=== PATIENT | female | born 1995 | race Caucasian/White ===

== ENCOUNTER 2018-05-16 15:55 | Emergency (ER) | payer OTHER ==
[2018-05-16] MEDS ORDERED: Ondansetron 4 MG/2 ML SDV IVPUSH ONE (17:37)
[2018-05-16] MEDS ORDERED: Lactated Ringers 1,000 ML IV ONE (17:37)
[2018-05-16] MEDS ORDERED: Sodium Chloride 0.9% 10 ML Syringe FLUSH PRN (17:37)
[2018-05-16] MEDS ORDERED: Ketorolac 15 MG/ML SDV IVPUSH ONE (17:38)
--- NOTE | 2018-05-16 20:02 | EDM.PDOC ---
ED HPI GENERAL MEDICAL PROBLEM - General Chief Complaint: Gastrointestinal Problem Stated Complaint: VOMITING Time Seen by Provider: 05/16/18 17:25 Source of Information: Reports: Patient History Limitations: Reports: No Limitations - History of Present Illness INITIAL COMMENTS - FREE TEXT/NARRATIVE: 23-year-old female presents for evaluation and treatment of nausea and vomiting. Patient reports that she started vomiting since around 10 AM. She states that anything she eats or drinks for cause her to have emesis. She has had at least 7 episodes of vomiting today. She denies any fevers, chills, shortness of breath, chest pain, abdominal pain or diarrhea. She does feel slightly lightheaded when she is up and walking around. She became concerned today when she went to work and was vomiting. She reports tetany to her hands that lasted a few minutes and resolves on its own. Patient denies any chance of . Patient reports that she was drink alcohol last night. She states that she had at least 8 drinks over the course tonight. She reports that she does not normally drink heavily, if anything she may have a beer or glass of wine once in a great while with food. - Related Data Allergies Allergy/AdvReac Type Severity Reaction Status Date / Time No Known Allergies Allergy Verified 05/16/18 16:30 Home Meds: Home Meds . [No Known Home Meds] 05/16/18 [History] Past Medical History - Past Health History Medical/Surgical History: Denies Medical/Surgical History Social & Family History - Tobacco Use Smoking Status *Q: Never Smoker - Caffeine Use Caffeine Use: Reports: Coffee - Recreational Drug Use Recreational Drug Type: Reports: Marijuana/Hashish ED ROS GENERAL - Review of Systems Review Of Systems: See Below Constitutional: Denies: Fever, Chills Respiratory: Denies: Shortness of Breath Cardiovascular: Denies: Chest Pain GI/Abdominal: Reports: Nausea, Vomiting. Denies: Abdominal Pain, Diarrhea Neurological: Reports: Other (Reports tetani to the hands earlier, resolved upon arrival.) ED EXAM, GI/ABD - Physical Exam Exam: See Below Exam Limited By: No Limitations General Appearance: Alert, WD/WN, No Apparent Distress Throat/Mouth: Normal Inspection, Normal Voice, No Airway Compromise Respiratory/Chest: No Respiratory Distress, Lungs Clear, Normal Breath Sounds Cardiovascular: Normal Peripheral Pulses, Regular Rate, Rhythm, No Murmur GI/Abdominal Exam: Normal Bowel Sounds, Soft, Non-Tender Extremities: Normal Inspection Neurological: Alert, Oriented, Normal Cognition Psychiatric: Normal Affect, Normal Mood Skin Exam: Warm, Dry, Normal Color Course - Vital Signs Last Recorded V/S: Last Vital Signs Temp 99.1 F 05/16/18 16:28 Pulse 85 05/16/18 16:28 Resp 20 05/16/18 16:28 BP 143/80 H 05/16/18 16:28 Pulse Ox 100 05/16/18 16:28 - Orders/Labs/Meds Labs: Laboratory Tests 05/16/18 05/16/18 05/16/18 Range/Units 18:15 18:15 19:41 WBC 11.41 H (3.98-10.04) K/mm3 RBC 4.36 (3.98-5.22) M/mm3 Hgb 12.9 (11.2-15.7) gm/L Hct 38.9 (34.1-44.9) % MCV 89.2 (79.4-94.8) fl MCH 29.6 (25.6-32.2) pg MCHC 33.2 (32.2-35.5) g/dl RDW Std Deviation 39.8 (36.4-46.3) fL Plt Count 337 (182-369) K/mm3 MPV 9.1 L (9.4-12.3) fl Neut % (Auto) 77.7 H (34.0-71.1) % Lymph % (Auto) 14.2 L (19.3-51.7) % [place] % (Auto) 7.4 (4.7-12.5) % Eos % (Auto) 0 L (0.7-5.8) Baso % (Auto) 0.4 (0.1-1.2) % Neut # (Auto) 8.87 H (1.56-6.13) K/mm3 Lymph # (Auto) 1.62 (1.18-3.74) K/mm3 [place] # (Auto) 0.85 H (0.24-0.36) K/mm3 Eos # (Auto) 0.00 L (0.04-0.36) K/mm3 Baso # (Auto) 0.04 (0.01-0.08) K/mm3 Sodium 142 (136-145) mEq/L Potassium 3.5 (3.5-5.1) mEq/L Chloride 103 (98-107) mEq/L Carbon Dioxide 26 (21-32) mEq/L Anion Gap 16.5 H (5-15) BUN 11 (7-18) mg/dL Creatinine 0.9 (0.55-1.02) mg/dL Est Cr Clr Drug Dosing 98.91 mL/min Estimated GFR (MDRD) > 60 (>60) mL/min BUN/Creatinine Ratio 12.2 L (14-18) Glucose 85 (74-106) mg/dL Calcium 9.4 (8.5-10.1) mg/dL Magnesium 1.9 (1.8-2.4) mg/dl Total Bilirubin 0.4 (0.2-1.0) mg/dL AST 13 L (15-37) U/L ALT 19 (14-59) U/L Alkaline Phosphatase 99 (46-116) U/L Total Protein 8.1 (6.4-8.2) g/dl Albumin 4.2 (3.4-5.0) g/dl Globulin 3.9 gm/dL Albumin/Globulin Ratio 1.1 (1-2) Urine Color Yellow (Yellow) Urine Appearance Clear (Clear) Urine pH 7.5 (5.0-8.0) Ur Specific [place] 1.020 (1.005-1.030) Urine Protein Negative (Negative) Urine Glucose (UA) Negative (Negative) Urine Ketones 1+ H (Negative) Urine Occult Blood Negative (Negative) Urine Nitrite Negative (Negative) Urine Bilirubin Negative (Negative) Urine Urobilinogen 0.2 (0.2-1.0) Ur Leukocyte Esterase Negative (Negative) Urine RBC 0-5 (0-5) /hpf Urine WBC 0-5 (0-5) /hpf Ur Epithelial Cells 5-10 H (0-5) /hpf Urine Bacteria Few (FEW) /hpf Urine Mucus Few (FEW) /hpf Ethyl Alcohol 0.00 (0.00) gm% Meds: Medications Discontinued Medications Generic Name Dose Route Start Last Admin Trade Name Freq PRN Reason Stop Dose Admin Lactated Ringer's 1,000 mls @ 999 mls/hr 05/16/18 17:37 05/16/18 18:38 Ringers, Lactated IV 05/16/18 18:37 999 mls/hr .BOLUS ONE Administration Ketorolac Tromethamine 15 mg 05/16/18 17:38 05/16/18 18:34 Toradol IVPUSH 05/16/18 17:39 15 mg ONETIME ONE Administration Ondansetron HCl 4 mg 05/16/18 17:37 05/16/18 18:36 Zofran IVPUSH 05/16/18 17:38 4 mg ONETIME ONE Administration Sodium Chloride 10 ml 05/16/18 17:37 05/16/18 18:36 Saline Flush FLUSH 10 ml ASDIRECTED PRN Administration Keep Vein Open - Re-Assessments/Exams Free Text/Narrative Re-Assessment/Exam: 05/16/18 20:00 Reviewed the labs with the patient. She is feeling much better after the fluids and medications. She feels comfortable going home at this time. Discharge instructions as documented. Departure - Departure Time of Disposition: 20:00 Disposition: Home, Self-Care 01 Condition: Good Clinical Impression: Dehydration - Discharge Information *PRESCRIPTION DRUG MONITORING PROGRAM REVIEWED*: No *COPY OF PRESCRIPTION DRUG MONITORING REPORT IN PATIENT MARCIAL: No Instructions: Dehydration, Adult, [id number] Referrals: PCP,None [Primary Care Provider] - Forms: ED Department Discharge Additional Instructions: Recommend continue to drink plenty of fluids. Drink water, Gatorade or Powerade. Recommend a blander diet the rest of today, may advance to a normal diet as tolerated. Isom diet recommendations include soup broth, crackers, bananas etc. Follow-up with your primary care provider as needed. Please return to the ER for symptoms change or worsen.
== END 2018-05-16 20:15 | disposition home or self-care (01) ==
LOC: JD.ED 15:55
DX: E86.0 Dehydration (principal); R11.2 Nausea with vomiting, unspecified
CPT/HCPCS: 36415; 80053; 81001; 83735; 85025; 96361; 96374; 96375; 99284; G0480; J1885; J2405; J7120